=== PATIENT | male | born 1965 | race Caucasian/White ===

== ENCOUNTER 2016-10-27 12:37 | Emergency (ER) | payer MEDICAID ==
[2016-10-27] MEDS ORDERED: oxyCOD/ACETAMIN 5 MG/325 MG TABLET PO STA (13:01)
--- NOTE | 2016-10-27 13:01 | ED Physician Documentation ---
PD HPI MALE - Stated complaint Stated Complaint: MALE - Chief complaint Chief Complaint: Abd Pain - History obtained from History obtained from: Patient, Friend (girlfriend) - History of Present Illness Timing - onset: Last night Timing - duration: Days (1) Timing - details: Gradual onset Pain level max: 8 Pain level now: 8 Associated symptoms: Testiclar pain, Other (R testicle pain, aching). No: Dysuria, Urinary frequency, Unable to urinate, Hematuria, Discharge, Genital sore / lesion, Scrotal swelling, Abdominal pain PD HPI MALE CONTRIB FACTORS: Sexually active (no changes in sexual partners for the past year) Similar symptoms before: Has not had sx before Recently seen: Not recently seen Review of Systems Ten Systems: 10 systems reviewed and negative Constitutional: denies: Fever, Chills Ears: denies: Ear pain Nose: denies: Rhinorrhea / runny nose, Congestion Respiratory: denies: Cough GI: denies: Abdominal Pain, Nausea, Vomiting, Diarrhea : denies: Hematuria, Testicular mass Skin: denies: Rash Musculoskeletal: denies: Neck pain, Back pain Neurologic: denies: Focal weakness, Numbness, Headache PD PAST MEDICAL HISTORY - Past Medical History Past Medical History: No - Past Surgical History Past Surgical History: No - Present Medications Home Medications: Ambulatory Orders Medication Instructions Recorded Confirmed Doxycycline Hyclate 100 mg PO BID #20 capsule 10/27/16 Oxycodone HCl/Acetaminophen 1 - 2 each PO Q6H PRN #10 tablet 10/27/16 [Percocet 5-325 mg Tablet] - Allergies Allergies/Adverse Reactions: Allergies Allergy/AdvReac Type Severity Reaction Status Date / Time No Known Drug Allergies Allergy Verified 10/27/16 12:43 - Social History Does the pt smoke?: No Smoking Status: Never smoker PD ED PE NORMAL - Vitals Vital signs reviewed: Yes - General General: Alert and oriented X 3, No acute distress - HEENT HEENT: Moist mucous membranes - Cardiac Cardiac: RRR - Respiratory Respiratory: No respiratory distress, Clear bilaterally - Abdomen Abdomen: Soft, Non tender, Non distended - Male Male : Other (TTP over the R testicle and R epididymis. Mild swelling. o/w normal exam.) - Rectal Rectal: Other (normal rectal exam. Normal prostate) - Back Back: No CVA TTP, No spinal TTP - Derm Derm: Warm and dry - Neuro Neuro: Alert and oriented X 3 - Psych Psych: Normal mood, Normal affect Results - Vitals Vitals: Vital Signs - 24 hr 10/27/16 10/27/16 12:41 15:07 Temperature 36.2 C L 36.4 C L Heart Rate 86 63 Respiratory 17 18 Rate Blood Pressure 146/78 H 122/64 O2 Saturation 97 99 Oxygen O2 Source Room air - Labs Labs: Laboratory Tests 10/27/16 12:47 Urine Color YELLOW Urine Clarity SL. CLOUDY Urine pH 6.5 Ur Specific [place] 1.020 Urine Protein NEGATIVE Urine Glucose (UA) NEGATIVE Urine Ketones NEGATIVE Urine Occult Blood NEGATIVE Urine Nitrite NEGATIVE Urine Bilirubin NEGATIVE Urine Urobilinogen 0.2 (NORMAL) Ur Leukocyte Esterase TRACE H Urine RBC 0-5 Urine WBC 11-25 H Ur Squamous Epith Cells RARE Squamous Amorphous Sediment Moderate Urine Bacteria Few Urine Mucus Few Strands Ur Microscopic Review INDICATED Urine Culture Comments INDICATED - Rads (name of study) scrotal US Radiology: Prelim report reviewed, EMP read contemporaneously, See rad report ( NO EVIDENCE OF TESTICULAR TORSION. A SMALL LEFT VARICOCELE. TRACE HYDROCELES. ) PD MEDICAL DECISION MAKING - ED course Complexity details: reviewed results, re-evaluated patient, considered differential, d/w patient, d/w family ED course: Patient is a 51-year-old gentleman who presents to the emergency department with right testicular pain and dysuria. Appears to have a UTI and will treat for this. No change in sexual partners for the past year. He is tender over the epididymis on exam, will cover for GC chlamydia. He is well-appearing, nontoxic. Afebrile. No acute findings on ultrasound. No abdominal tenderness. No pain at McBurney's point. No hernias. Patient and family counseled regarding signs and symptoms for which I believe and urgent re- evaluation would be necessary. Patient with good understanding of and agreement to plan and is comfortable going home at this time This document was made in part using voice recognition software. While efforts are made to proofread this document, sound alike and grammatical errors may occur. Departure - Departure Disposition: 01 Home, Self Care Clinical Impression: Epididymitis UTI (urinary tract infection) Qualifiers: Urinary tract infection type: acute cystitis Hematuria presence: without hematuria Qualified Code(s): N30.00 - Acute cystitis without hematuria Condition: Good Instructions: ED UTI Cystitis Male, ED Epididymitis Follow-Up: your,doctor within 1 week [Other] Prescriptions: Doxycycline Hyclate 100 mg PO BID #20 capsule Oxycodone HCl/Acetaminophen [Percocet 5-325 mg Tablet] 1 - 2 each PO Q6H PRN # 10 tablet PRN Reason: pain Comments: This should improve over the next few days. If you are not improving in the next 2-3 days, return here for further evaluation. Also return here if you worsen. Take all antibiotics until gone. Do not drink alcohol or drive while on narcotic pain medicine. Note that many narcotic pain relievers also contain tylenol/acetaminophen. Please ensure that your total dose of acetaminophen from all sources does not exceed 3 grams (3000mg) per day. You may constipated on this medication, take a stool softener such as "Colace" twice a day while you are on it. Also recommend a [id number]-[id number] laxative such as senna or MiraLAX any day that you do not have a bowel movement. If you received narcotic pain medication in the emergency department, do not drive or operate machinery for the next 24 hours. Your blood pressure was elevated today on check in to the emergency department. This does not mean that you have hypertension, it is a common phenomenon to check into the emergency department and have elevated blood pressure. I recommend that you see your primary care physician within the week to have it rechecked when you're feeling better. Discharge Date/Time: 10/27/16 15:26
[2016-10-27] MEDS ORDERED: oxyCOD/ACETAMIN 5 MG/325 MG TABLET PO ONE (13:07)
[2016-10-27 13:19] LABS: BILIRUBIN,URINE NEGATIVE (NEGATIVE); PH,URINE 6.5 PH (5.0-7.5)
[2016-10-27 13:22] LABS: UA w/ MICROSCOPIC CHARGE YES
[2016-10-27 13:26] LABS: UR CULTURE IF IND INDICATED
[2016-10-27] MEDS ORDERED: cefTRIAXone 1 GM VIAL IM STA (14:50)
[2016-10-27] MEDS ORDERED: cefTRIAXone 1 GM VIAL ONE (15:05)
[2016-10-27] MEDS ORDERED: LIDOCAINE 1% 2 ML VIAL ONE (15:05)
[2016-10-27 15:08] VITALS: BP 122/64
--- NOTE | 2016-10-27 15:21 | Ultrasound Report ---
SCROTAL DUPLEX: 10/27/2016 CLINICAL INDICATION: Right-sided pain and swelling. TECHNIQUE: Real-time sonographic vascular imaging was performed by the information technology architect through the scrotu m utilizing both color-flow and Doppler spectral analysis. Multiple employee's representative static images wer e saved for review. FINDINGS: The right testicle measures 4.9 x 3.0 x 2.3 cm, and the left testicle measures 4.7 x 2.7 x 2.2 cm. Both testicles demonstrate normal flow and echotexture. Trace hydroceles are present. The ep ididymides are unremarkable. A small left varicocele is noted. No hernia is appreciated. IMPRESSION: NO EVIDENCE OF TESTICULAR TORSION. A SMALL LEFT VARICOCELE. TRACE HYDROCELES. JOB #: [id number] EXT JOB #:[id number]
== END 2016-10-27 15:26 | disposition home or self-care (01) ==
LOC: ED 12:37
DX: N45.1 Epididymitis (principal); N30.00 Acute cystitis without hematuria
CPT/HCPCS: 76870; 81001; 87086; 87491; 87591; 93975; 96372; 99283; A9270; 81003

== ENCOUNTER 2016-11-01 03:14 | Emergency (ER) | payer MEDICAID ==
[2016-11-01 03:42] LABS: BILIRUBIN,URINE NEGATIVE (NEGATIVE)
[2016-11-01 03:44] LABS: UA CHARGE (STRIP ONLY) YES
--- NOTE | 2016-11-01 04:07 | ED Physician Documentation ---
PD HPI MALE - Stated complaint Stated Complaint: MALE - Chief complaint Chief Complaint: General - History obtained from History obtained from: Patient, Family - History of Present Illness Timing - onset: How many days ago (5) Timing - details: Gradual onset, Still present Associated symptoms: Testiclar pain, Scrotal swelling. No: Dysuria, Urinary frequency, Unable to urinate, Hematuria PD HPI MALE CONTRIB FACTORS: Sexually active Similar symptoms before: Work up / diagnostics, Treatment Recently seen: Emergency Dept - Additional information Additional information: Patient is a 51 year old male who is presenting to the emergency department for scrotal pain and swelling. Patient was seen five days ago and started on doxycyline for epididimytis. Patient states that his pain never improved and actually worsened so he came back in for evaluation. Review of Systems Constitutional: denies: Fever, Chills Eyes: denies: Photophobia Ears: denies: Ear pain, Drainage/discharge Nose: denies: Rhinorrhea / runny nose, Congestion Throat: denies: Sore throat GI: denies: Abdominal Pain, Nausea, Vomiting : reports: Testicular pain. denies: Dysuria, Frequency, Hesitancy Skin: denies: Rash Musculoskeletal: denies: Extremity pain, Joint pain Neurologic: denies: Generalized weakness, Focal weakness Immunocompromised: denies: Immunocompromised PD PAST MEDICAL HISTORY - Past Medical History Cardiovascular: Hypertension, High cholesterol - Past Surgical History Past Surgical History: No HEENT: Tonsil/Adenoidectomy - Present Medications Home Medications: Ambulatory Orders Medication Instructions Recorded Confirmed Doxycycline Hyclate 100 mg PO BID #20 capsule 10/27/16 11/01/16 Oxycodone HCl/Acetaminophen 1 - 2 each PO Q6H PRN #10 tablet 10/27/16 11/01/16 [Percocet 5-325 mg Tablet] Hydrocodone/Acetaminophen 1 - 2 each PO Q6H PRN #14 tablet 11/01/16 [Hydrocodon-Acetaminophen 5-325] Levofloxacin [Levaquin] 500 mg PO DAILY #10 tablet 11/01/16 - Allergies Allergies/Adverse Reactions: Allergies Allergy/AdvReac Type Severity Reaction Status Date / Time No Known Drug Allergies Allergy Verified 11/01/16 03:20 - Social History Does the pt smoke?: No Smoking Status: Former smoker Does the pt drink ETOH?: Yes Does the pt have substance abuse?: No Substance Use and Type: Marijuana - Immunizations Immunizations are current?: No Immunizations: TDAP >10years/unknown PD ED PE NORMAL - Vitals Vital signs reviewed: Yes - General General: Alert and oriented X 3, Well developed/nourished - HEENT HEENT: Atraumatic, PERRL - Neck Neck: Supple, no meningeal sign - Cardiac Cardiac: RRR, No murmur - Respiratory Respiratory: No respiratory distress - Abdomen Abdomen: Soft, Non tender, Non distended - Derm Derm: Normal color, Warm and dry, No rash - Extremities Extremities: No deformity, No tenderness to palpate, No edema - Neuro Neuro: Alert and oriented X 3, No motor deficit, No sensory deficit, Normal speech - Psych Psych: Normal mood, Normal affect PD ED PE EXPANDED - General General: Alert, In Pain - Male Male : Tenderness, Cultures sent, 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, Other (tenderness and swelling of right testical and scrotum) Results - Vitals Vitals: Vital Signs - 24 hr 11/01/16 03:18 Temperature 37.1 C Heart Rate 78 Respiratory 16 Rate Blood Pressure 163/76 H O2 Saturation 95 Oxygen O2 Source Room air - Labs Labs: Laboratory Tests 11/01/16 03:36 Urine Color YELLOW Urine Clarity CLEAR Urine pH 6.0 Ur Specific [place] 1.020 Urine Protein NEGATIVE Urine Glucose (UA) NEGATIVE Urine Ketones NEGATIVE Urine Occult Blood NEGATIVE Urine Nitrite NEGATIVE Urine Bilirubin NEGATIVE Urine Urobilinogen 0.2 (NORMAL) Ur Leukocyte Esterase NEGATIVE Ur Microscopic Review NOT INDICATED - Rads (name of study) scrotal Radiology: Final report received (right side epididymitis) PD MEDICAL DECISION MAKING - ED course Complexity details: reviewed old records, reviewed results, re-evaluated patient , considered differential, d/w patient, d/w family ED course: Patient was seen and examined at bedside. patient had scrotal/testicular epidymal tenderness. urine was collected and ultrasound was ordered. When patient returned the results were reviewed. Patient was found to have continual epididymitis. levaquin was added to his regimen. Patient was instructed to get urological follow up and was stable for discharge with outpatient follow up. Departure - Departure Disposition: 01 Home, Self Care Clinical Impression: Epididymitis Condition: Good Instructions: ED Epididymitis Follow-Up: [facility] [Provider Group] - Tomorrow (call to schedule a follow up appointment) Prescriptions: Hydrocodone/Acetaminophen [Hydrocodon-Acetaminophen 5-325] 1 - 2 each PO Q6H PRN #14 tablet PRN Reason: pain Levofloxacin [Levaquin] 500 mg PO DAILY #10 tablet Comments: Your symptoms today are being caused by epididimytis. You should finish your course of doxycycline. we will also add levaquin that you will need to take daily for the next 10 days. You can take motrin or tylenol for pain and percocet for breakthrough pain. You should call your pmd for urological referral or call the [facility] for follow up.
--- NOTE | 2016-11-01 05:27 | Ultrasound Preliminary Report ---
Exam: US Testicle w/Doppler IMPRESSION: Right epididymitis. [facility] SITE ID: [id number]
--- NOTE | 2016-11-01 05:34 | Ultrasound Report ---
EXAM: SCROTAL ULTRASOUND EXAM DATE: 11/01/2016 05:12 AM. CLINICAL HISTORY: Worsening testicular pain and swelling. COMPARISON: None. TECHNIQUE: Real-time scanning was performed with static images obtained. Both color-flow and Doppler spectral analysis were utilized. FINDINGS: Right: Testis: 4.9 x 3.0 x 2.9 cm. Normal size and echotexture. No mass, calcification, or abnormal blood fl ow. Epididymis: Heterogeneous and hyperemic. Incidental 10 mm epididymal cyst. Hydrocele: [id number]-[id number]. Varicocele: None. Left: Testis: 4.6 x 2.4 x 2.8 cm. Normal size and echotexture. No mass, calcification, or abnormal blood fl ow. Epididymis: Normal size and echotexture. No solid-appearing mass or abnormal blood flow. Hydrocele: Trace. Varicocele: None. Other: None. IMPRESSION: Right epididymitis. [facility] Referring Provider Line: [phone] SITE ID: [id number]
[2016-11-01] MEDS ORDERED: levoFLOXacin 250 MG TABLET PO STA (05:46)
[2016-11-01] MEDS ORDERED: oxyCOD/ACETAMIN 5 MG/325 MG TABLET PO STA (05:46)
[2016-11-01] MEDS ORDERED: levoFLOXacin 250 MG TABLET ONE (05:52)
[2016-11-01] MEDS ORDERED: oxyCOD/ACETAMIN 5 MG/325 MG TABLET PO ONE (05:52)
[2016-11-01 05:55] VITALS: BP 141/91
== END 2016-11-01 06:00 | disposition home or self-care (01) ==
LOC: ED 03:14
DX: N45.1 Epididymitis (principal); I10 Essential (primary) hypertension; E78.00 Pure hypercholesterolemia, unspecified; Z87.891 Personal history of nicotine dependence
CPT/HCPCS: 76870; 81003; 93975; 99283; A9270; 81001

== ENCOUNTER 2017-09-08 19:32 | Emergency (ER) | payer SELFPAY ==
[2017-09-08] MEDS ORDERED: oxyCOD/ACETAMIN 5 MG/325 MG TABLET PO STA (20:06)
--- NOTE | 2017-09-08 20:08 | ED Physician Documentation ---
PD HPI MALE - Stated complaint Stated Complaint: MALE - Chief complaint Chief Complaint: Abd Pain - History obtained from History obtained from: Patient, Family - History of Present Illness Timing - onset: Other (3 days gradual onset now severe R testicular pain c/w prior episode of epidydimitis.) Review of Systems Constitutional: reports: Reviewed and negative Ears: reports: Reviewed and negative Nose: reports: Reviewed and negative Throat: reports: Reviewed and negative Cardiac: reports: Reviewed and negative PD PAST MEDICAL HISTORY - Past Medical History Past Medical History: No Cardiovascular: Hypertension, High cholesterol - Past Surgical History Past Surgical History: No HEENT: Tonsil/Adenoidectomy - Present Medications Home Medications: Ambulatory Orders Medication Instructions Recorded Confirmed Doxycycline Hyclate 100 mg PO BID #20 capsule 10/27/16 11/01/16 Oxycodone HCl/Acetaminophen 1 - 2 each PO Q6H PRN #10 tablet 10/27/16 11/01/16 [Percocet 5-325 mg Tablet] Hydrocodone/Acetaminophen 1 - 2 each PO Q6H PRN #14 tablet 11/01/16 [Hydrocodon-Acetaminophen 5-325] Levofloxacin [Levaquin] 500 mg PO DAILY #10 tablet 11/01/16 Levofloxacin [Levaquin] 500 mg PO DAILY #10 tablet 09/08/17 Oxycodone HCl/Acetaminophen 1 - 2 tab PO Q4H PRN #10 tablet 09/08/17 [Percocet 5-325 mg Tablet] - Allergies Allergies/Adverse Reactions: Allergies Allergy/AdvReac Type Severity Reaction Status Date / Time No Known Drug Allergies Allergy Verified 09/08/17 19:38 - Social History Does the pt smoke?: No Smoking Status: Never smoker Does the pt drink ETOH?: Yes Does the pt have substance abuse?: No - Immunizations Immunizations are current?: No Immunizations: TDAP >10years/unknown - POLST Patient has POLST: No PD ED PE NORMAL - Vitals Vital signs reviewed: Yes - General General: Alert and oriented X 3, No acute distress - Cardiac Cardiac: RRR, No murmur - Respiratory Respiratory: No respiratory distress, Clear bilaterally - Abdomen Abdomen: Normal bowel sounds, Soft, Non tender - Male Male : Other (R testicle with swelling over epidydimis and nl lie, normal cremaster) - Neuro Neuro: Alert and oriented X 3, Normal speech Results - Vitals Vitals: Vital Signs - 24 hr 09/08/17 19:36 Temperature 36.7 C Heart Rate 73 Respiratory 16 Rate Blood Pressure 173/89 H O2 Saturation 96 Oxygen O2 Source Room air - Rads (name of study) Testicular sonogram Radiology: Prelim report reviewed, See rad report (Slightly increased right epididymal vascularity which could represent epididymitis and there is a small right hydrocele.) PD MEDICAL DECISION MAKING - ED course ED course: The patient and family were counseled as to the diagnosis and need for follow- up. I counseled the patient with regard to signs and symptoms that would necessitate an urgent reevaluation in the emergency department. They understand they are welcome to return at any time if worse or if not improving as expected. This document was made in part using voice recognition software. While efforts are made to proofread this documents, sound alike and grammatical errors may occur. - Sepsis Event Vital Signs: Vital Signs - 24 hr 09/08/17 19:36 Temperature 36.7 C Heart Rate 73 Respiratory 16 Rate Blood Pressure 173/89 H O2 Saturation 96 Oxygen O2 Source Room air Departure - Departure Disposition: 01 Home, Self Care Clinical Impression: Epididymitis Condition: Good Record reviewed to determine appropriate education?: Yes Instructions: Epididymitis Dc Prescriptions: Levofloxacin [Levaquin] 500 mg PO DAILY #10 tablet Oxycodone HCl/Acetaminophen [Percocet 5-325 mg Tablet] 1 - 2 tab PO Q4H PRN #10 tablet PRN Reason: Pain Comments: Call your doctor to arrange a follow-up appointment, make the next available appointment. In the interim, return anytime if worse or if new symptoms develop. Do not drink or drive while taking narcotic pain medication. Note that many narcotic pain relievers also contain Tylenol/acetaminophen. Please ensure that your total dose of acetaminophen from all sources does not exceed 3 g (3000 mg) per day. You may get constipated while on this medication. Take a stool softener such as Colace twice a day while you are on it. Also add an fyqj-mml-exetvip laxative such as senna or MiraLAX on any day that you do not have a bowel movement. If you received a narcotic pain medication or sedative while in the emergency department, do not drive for the next 24 hours. Your blood pressure was elevated today on check into the emergency department. This does not mean that you have hypertension, it is a common phenomenon to come to the emergency department and have elevated blood pressure. I recommend that you see your primary care physician within the week to have it rechecked when you are feeling better.
--- NOTE | 2017-09-08 21:54 | Ultrasound Report ---
EXAM: SCROTAL ULTRASOUND EXAM DATE: 09/08/2017 09:34 PM. CLINICAL HISTORY: Right testicular pain. COMPARISON: None. TECHNIQUE: Real-time scanning was performed with static images obtained. Both color-flow and Doppler spectral analysis were utilized. FINDINGS: Right: Testis: 4.8 x 2.4 x 2.9 cm. Normal size and echotexture. No mass, calcification, or abnormal blood fl ow. Epididymis: 0.7 x 1.5 x 0.8 cm. Normal size and echotexture. Small epididymal cysts are seen measurin g 8 mm and 4 mm, otherwise, no mass. Slightly increased vascularity seen. There is slight thickening of the overlying scrotal wall. Hydrocele: Small, anechoic. Varicocele: None. Left: Testis: 4.5 x 2.4 x 2.7 cm. Normal size and echotexture. No mass, calcification, or abnormal blood fl ow. Epididymis: 0.4 x 1.0 x 1.4 cm. Normal size and echotexture. No mass or abnormal blood flow. Hydrocele: None. Varicocele: None. IMPRESSION: 1. No testicular mass or torsion. 2. Slightly increased right epididymal vascularity which could represent epididymitis. 3. Small right hydrocele. [facility] Referring Provider Line: [phone] SITE ID: [id number]
--- NOTE | 2017-09-08 21:54 | Ultrasound Preliminary Report ---
Exam: US TESTICLE W/DOPPLER IMPRESSION: 1. No testicular mass or torsion. 2. Slightly increased right epididymal vascularity which could represent epididymitis. 3. Small right hydrocele. [facility] SITE ID: [id number]
[2017-09-08] MEDS ORDERED: levoFLOXacin 250 MG TABLET PO STA (21:58)
[2017-09-08] MEDS ORDERED: oxyCODONE/ACET 5/325 Prepack 4 PO STA (21:59)
[2017-09-08 22:14] VITALS: BP 160/80
== END 2017-09-08 22:08 | disposition home or self-care (01) ==
LOC: ED 19:32
DX: N45.1 Epididymitis (principal); I10 Essential (primary) hypertension; E78.00 Pure hypercholesterolemia, unspecified
CPT/HCPCS: 76870; 93975; 99283; A9270; 87491; 87591